=== PATIENT | male | born 1980 | race Two or more races ===

== ENCOUNTER 2018-06-11 15:13 | Inpatient (IN) | payer OTHER ==
[2018-06-11 17:05] VITALS: BMI 20.8
--- NOTE | 2018-06-11 21:07 | HP ---
"CIWA Score - Admission Criteria [facility] Guidelines: Admission for Medically Managed Detox: Requires at least one of the followin. CIWA greater than 12 2. Seizures within the past 24 hours 3. Delirium tremens within the past 24 hours 4. Hallucinations within the past 24 hours 5. Acute intervention needed for co occurring medical disorder 6. Acute intervention needed for co occurring psychiatric disorder 7. Severe withdrawal that cannot be handled at a lower level of care (continued vomiting, continued diarrhea, abnormal vital signs) requiring intravenous medication and/or fluids 8. Admission ROS S - HPI Chief Complaint: Patient w/ hx marijuana use. Mandated into rehab post incarceration. Allergies/Adverse Reactions: Allergies Allergy/AdvReac Type Severity Reaction Status Date / Time No Known Allergies Allergy Verified 06/11/18 18:06 History of Present Illness: Hx marijuana use from age 36. Incarcerated 05/10/18 and released from [facility] today and mandated into rehab. Nicotine use since age 20. Was a 1 ppd smoker. Stopped 1 month ago Last THC use was 1 month ago. Denies hx seizures, blackouts, overdoses. Denies significant PMH/PSH Search Terms: Edgar Vance, 1980 Search Date: 06/11/2018 09:05:15 PM The Drug Utilization Report below displays all of the controlled substance prescriptions, if any, that your patient has filled in the last twelve months. The information displayed on this report is compiled from pharmacy submissions to the Department, and accurately reflects the information as submitted by the pharmacies. This report was requested by: Blanca No | Reference #: [id number] There are no results for the search terms that you entered. Exam Limitations: No Limitations - Ebola screening Have you traveled outside of the country in the last 21 days: No Have you had contact with anyone from an Ebola affected area: No Have you been sick,other than usual withdrawal symptoms: No Do you have a fever: No - Review of Systems Constitutional: No Symptoms Reported EENT: reports: No Symptoms Reported Respiratory: reports: No Symptoms reported Cardiac: reports: No Symptoms Reported GI: reports: No Symptoms Reported : reports: No Symptoms Reported Musculoskeletal: reports: No Symptoms Reported Integumentary: reports: Other (Chapped lips) Neuro: reports: Headache Endocrine: reports: No Symptoms Reported Hematology: reports: No Symptoms Reported Psychiatric: reports: Judgement Intact, Orientated x3, Depressed (Denies thoughts of harming self or others) Patient History - PPD History PPD to be Administered?: Yes - Smoking Cessation Smoking history: Former smoker Have you smoked in the past 12 months: Yes Aproximately how many cigarettes per day: 20 If you are a former smoker, when did you quit?: 30 days ago Hx Chewing Tobacco Use: No Initiated information on smoking cessation: Yes 'Breaking Loose' booklet given: 06/11/18 - Substance & Tx. History Hx Alcohol Use: No Hx Substance Use: Yes Substance Use Type: Marijuana Hx Substance Use Treatment: No (tried stopping on own) - Substances Abused Marijuana/Hashish Route: Smoking Frequency: No use in 30 days (Was incarcerated) Age of first use: 20 Admission Physical Exam [facility] - Vital Signs Vital Signs: Vital Signs - 24 hr 06/11/18 17:03 Temperature 98.2 F Pulse Rate 90 Respiratory 18 Rate Blood Pressure 126/75 - Physical General Appearance: Yes: No Apparent Distress HEENTM: Yes: EOMI, Hearing grossly Normal, Normal ENT Inspection, Normocephalic , Normal Voice, JORDAN, Pharynx Normal Respiratory: Yes: Chest Non-Tender, Lungs Clear, Normal Breath Sounds, No Respiratory Distress Neck: Yes: No masses,lesions,Nodules, Supple Breast: Yes: Breast Exam Deferred Cardiology: Yes: Regular Rhythm, Regular Rate, S1, S2 Abdominal: Yes: Normal Bowel Sounds, Non Tender, Flat, Soft Genitourinary: Yes: Within Normal Limits Back: Yes: Normal Inspection Musculoskeletal: Yes: full range of Motion, Gait Steady Extremities: Yes: Normal Capillary Refill, Normal Range of Motion, Non-Tender, Tremors Neurological: Yes: jinriksha driver II-XII NML intact, Fully Oriented, Alert, Motor Strength 5/5, Normal Mood/Affect, Normal Response Integumentary: Yes: Normal Color, Dry, Warm Lymphatic: Yes: Within Normal Limits - Diagnostic (1) Cannabis use in remisison Current Visit: Yes Status: Acute (2) Nicotine dependence in remission Current Visit: Yes Status: Acute Qualifiers: Nicotine product type: cigarettes Qualified Code(s): F17.211 - Nicotine dependence, cigarettes, in remission Cleared for Admission [facility] - Detox or Rehab Claeared for Rehab Admission: Yes [facility] Breath Alcohol Content Breath Alcohol Content: 0 Urine Drug Screen - Results Drug Screen Negative: Yes Inpatient Rehab Admission - Initial Determination Are CD services needed?: Yes Free of communicable disease: Yes Not in need of hospitalization: Yes - Rehab Admission Criteria Previous failed treatment: Yes Poor recovery environment: Yes Comorbidities: No Lacks judgement: No Patient is meeting Inpatient Rehab admission criteria:: Yes"
[2018-06-11] MEDS ORDERED: MAGNESIUM HYDROX 2400MG/30ML ORAL SUSPENSION 30 ML CUP PO PRN (21:26)
[2018-06-11] MEDS ORDERED: LOPERAMIDE HCL 2 MG CAPSULE PO PRN (21:26)
[2018-06-11] MEDS ORDERED: MENTHOL/PHENOL 1 EACH UD MM PRN (21:26)
[2018-06-11] MEDS ORDERED: MAG HYDROX/AL HYDROX/SIMETH 30 ML UNIT-DOSE CUP PO PRN (21:26)
[2018-06-11] MEDS ORDERED: MAGNESIUM CITRATE 300 ML BOTTLE PO PRN (21:26)
[2018-06-11] MEDS ORDERED: IBUPROFEN 400 MG TABLET (FP) PO PRN (21:26)
[2018-06-11] MEDS ORDERED: ACETAMINOPHEN 325 MG TABLET (FP) PO PRN (21:26)
[2018-06-11] MEDS: THIAMINE HCL 100 MG TABLET (FP) PO SCH (22:27)
[2018-06-11] MEDS ORDERED: TUBERCULIN PPD 5 TU/0.1ML VIAL ID ONE (22:31)
[2018-06-12 01:25] LABS: URINE APPEARANCE CLEAR; URINE BILIRUBIN NEGATIVE (<2.0 mg/dL); URINE COLOR LTYELLOW; URINE GLUCOSE (UA) NEGATIVE (NEGATIVE); URINE KETONE NEGATIVE (NEGATIVE); URINE LEUK ESTERASE NEGATIVE (NEGATIVE); URINE NITRITE NEGATIVE (NEGATIVE); URINE PROTEIN NEGATIVE (NEGATIVE); URINE UROBILINOGEN NEGATIVE mg/dL (0.2-1.0)
[2018-06-12] MEDS ORDERED: NICOTINE 7 MG/24 HOURS TOPICAL PATCH TD SCH (10:00)
[2018-06-12] MEDS: PRENATAL VITAMINS W/ FOLIC ACID TABLET (FP) PO SCH (10:49)
[2018-06-12 11:05] LABS: ALBUMIN 3.8 g/dl (3.4-5.0); ALK PHOS 89 U/L (45-117); ANION GAP 7 MMOL/L (8-16); BILIRUBIN,TOTAL 0.3 mg/dL (0.2-1); BLOOD UREA NITROGEN 15 mg/dL (7-18); CALCIUM 8.6 mg/dL (8.5-10.1); CHLORIDE 106 mmol/L (98-107); CO2 27 mmol/L (21-32); CREATININE 0.8 mg/dL (0.55-1.3); GLUCOSE,RANDOM 98 mg/dL (74-106); POTASSIUM 3.8 mmol/L (3.5-5.1); SGOT/AST 14 U/L (15-37); SGPT/ALT 33 U/L (13-61); SODIUM 140 mmol/L (136-145); TOT PROT 6.5 g/dl (6.4-8.2)
[2018-06-12 11:08] LABS: HEMATOCRIT 45.1 % (35.4-49); HEMOGLOBIN 14.9 GM/dL (11.7-16.9); MCH 29.6 pg (25.7-33.7); MEAN CELL VOLUME 89.6 fl (80-96); MEAN PLT VOLUME 8.9 fl (7.5-11.1); PLATELET COUNT 232 K/MM3 (134-434); RBC 5.03 M/mm3 (4.00-5.60); RDW 14.2 % (11.9-15.9); WHITE BLOOD COUNT 7.4 K/mm3 (4.0-10.0)
[2018-06-12] MEDS: NICOTINE POLACRILEX 2 MG GUM BC PRN ×4 (11:12→23:32)
--- NOTE | 2018-06-12 11:57 | HP ---
Psychiatrist Admission - Data Date of interview: 06/12/18 Admission source: Court mandated Identifying data: This is the first [facility] admission for this 38 years old single male, unemployed, living with family Medical History: Unremakable. Smokes cigarettes 1 ppd Psychiatric History: Denies history of previous psychiatric treatment Physical/Sexual Abuse/Trauma History: Denies emotional, physical or sexual abuse as well as DV relationship Additional Comment: Reports history of 2-3 previous misdemeanor arrests. Patient has an active case and he is court mandated to be here for treatment Vital Signs: Vital Signs - 24 hr 06/11/18 06/11/18 06/12/18 17:03 22:00 03:30 Temperature 98.2 F 98.5 F Pulse Rate 90 74 Respiratory 18 18 18 Rate Blood Pressure 126/75 109/69 06/12/18 06:55 Temperature 97.9 F Pulse Rate 87 Respiratory 18 Rate Blood Pressure 106/70 Allergies/Adverse Reactions: Allergies Allergy/AdvReac Type Severity Reaction Status Date / Time No Known Allergies Allergy Verified 06/11/18 18:06 Date of last physical exam: 06/11/18 Concur with the findings of this exam: Yes - Substance Abuse/Tx History Hx Alcohol Use: No Hx Substance Use: Yes Substance Use Type: Marijuana (Started smoking marijuana in hislate 20's, consumes 1-2 blunts 1-2 monthly. Last used 6 weeks ago) Hx Substance Use Treatment: No Mental Status Exam - Mental Status Exam Alert and Oriented to: Time, Place, Person Cognitive Function: Fair Patient Appearance: Well Groomed Mood: Depressed Affect: Appropriate Patient Behavior: Cooperative Speech Pattern: Clear Voice Loudness: Normal Thought Process: Intact, Goal Oriented Hallucinations: Denies Suicidal Ideation: Denies Homicidal Ideation: Denies Insight/Judgement: Poor Sleep: Fair Appetite: Good Muscle strength/Tone: Normal Gait/Station: Normal Psychiatric Findings - Problem List ([place] 1, 2,3) (1) Cannabis abuse Current Visit: Yes Status: Acute (2) Nicotine dependence Current Visit: Yes Status: Chronic - Initial Treatment Plan Initial Treatment Plan: Monitor progress
[2018-06-12] MEDS: NICOTINE 21 MG/24 HOURS TOPICAL PATCH TD SCH (20:07)
[2018-06-12] MEDS: THIAMINE HCL 100 MG TABLET (FP) PO SCH (21:25)
[2018-06-13] MEDS: PRENATAL VITAMINS W/ FOLIC ACID TABLET (FP) PO SCH (10:01)
[2018-06-13] MEDS: NICOTINE 21 MG/24 HOURS TOPICAL PATCH TD SCH (10:01)
[2018-06-13] MEDS: NICOTINE POLACRILEX 2 MG GUM BC PRN ×2 (10:02→20:35)
[2018-06-13] MEDS ORDERED: PT OWN MED DRAWER 7, Y5N ONE (20:10)
[2018-06-13] MEDS: THIAMINE HCL 100 MG TABLET (FP) PO SCH (21:29)
[2018-06-14] MEDS: NICOTINE POLACRILEX 2 MG GUM BC PRN ×3 (08:46→21:44)
[2018-06-14] MEDS: NICOTINE 21 MG/24 HOURS TOPICAL PATCH TD SCH (10:12)
[2018-06-14] MEDS: PRENATAL VITAMINS W/ FOLIC ACID TABLET (FP) PO SCH (10:12)
[2018-06-14] MEDS: THIAMINE HCL 100 MG TABLET (FP) PO SCH (21:45)
[2018-06-15] MEDS: PRENATAL VITAMINS W/ FOLIC ACID TABLET (FP) PO SCH (10:33)
[2018-06-15] MEDS: NICOTINE 21 MG/24 HOURS TOPICAL PATCH TD SCH (10:33)
[2018-06-15] MEDS: NICOTINE POLACRILEX 2 MG GUM BC PRN ×2 (10:34→19:43)
[2018-06-15] MEDS: THIAMINE HCL 100 MG TABLET (FP) PO SCH (21:34)
[2018-06-16] MEDS: PRENATAL VITAMINS W/ FOLIC ACID TABLET (FP) PO SCH (10:06)
[2018-06-16] MEDS: NICOTINE 21 MG/24 HOURS TOPICAL PATCH TD SCH (10:07)
[2018-06-16] MEDS: NICOTINE POLACRILEX 2 MG GUM BC PRN ×3 (10:07→20:28)
[2018-06-16] MEDS: THIAMINE HCL 100 MG TABLET (FP) PO SCH (21:38)
[2018-06-17] MEDS: PRENATAL VITAMINS W/ FOLIC ACID TABLET (FP) PO SCH (11:52)
[2018-06-17] MEDS: NICOTINE 21 MG/24 HOURS TOPICAL PATCH TD SCH (11:52)
[2018-06-17] MEDS: NICOTINE POLACRILEX 2 MG GUM BC PRN ×2 (13:53→16:40)
[2018-06-17] MEDS: THIAMINE HCL 100 MG TABLET (FP) PO SCH (21:53)
[2018-06-18] MEDS: NICOTINE 21 MG/24 HOURS TOPICAL PATCH TD SCH (10:44)
[2018-06-18] MEDS: PRENATAL VITAMINS W/ FOLIC ACID TABLET (FP) PO SCH (10:45)
[2018-06-18] MEDS ORDERED: PT OWN MED DRAWER 7, Y5N ONE (10:46)
[2018-06-18] MEDS: NICOTINE POLACRILEX 2 MG GUM BC PRN ×3 (14:24→21:56)
[2018-06-18] MEDS: THIAMINE HCL 100 MG TABLET (FP) PO SCH (21:56)
[2018-06-19] MEDS: NICOTINE 21 MG/24 HOURS TOPICAL PATCH TD SCH (10:30)
[2018-06-19] MEDS: PRENATAL VITAMINS W/ FOLIC ACID TABLET (FP) PO SCH (10:30)
[2018-06-19] MEDS: NICOTINE POLACRILEX 2 MG GUM BC PRN ×4 (10:31→21:51)
[2018-06-19] MEDS: MELATONIN 5 MG TABLETS PO PRN (21:49)
[2018-06-19] MEDS: THIAMINE HCL 100 MG TABLET (FP) PO SCH (21:49)
[2018-06-20] MEDS: NICOTINE 21 MG/24 HOURS TOPICAL PATCH TD SCH (10:13)
[2018-06-20] MEDS: PRENATAL VITAMINS W/ FOLIC ACID TABLET (FP) PO SCH (10:13)
[2018-06-20] MEDS: NICOTINE POLACRILEX 2 MG GUM BC PRN ×4 (10:14→21:53)
[2018-06-20] MEDS: THIAMINE HCL 100 MG TABLET (FP) PO SCH (21:53)
[2018-06-20] MEDS: MELATONIN 5 MG TABLETS PO PRN (21:53)
[2018-06-21] MEDS: NICOTINE 21 MG/24 HOURS TOPICAL PATCH TD SCH (10:32)
[2018-06-21] MEDS: PRENATAL VITAMINS W/ FOLIC ACID TABLET (FP) PO SCH (10:32)
[2018-06-21] MEDS: NICOTINE POLACRILEX 2 MG GUM BC PRN ×3 (10:33→18:03)
[2018-06-21] MEDS ORDERED: COLLOIDAL OATMEAL 1 BAR EACH TP PRN (13:15)
[2018-06-21] MEDS ORDERED: AMMONIUM LACTATE 12% LOTION 225 GM BOTTLE TP PRN (13:16)
[2018-06-21] MEDS: THIAMINE HCL 100 MG TABLET (FP) PO SCH (21:13)
[2018-06-21] MEDS: MELATONIN 5 MG TABLETS PO PRN (21:13)
[2018-06-21] MEDS ORDERED: PT OWN MED DRAWER 7, Y5N ONE (22:20)
[2018-06-22] MEDS: NICOTINE 21 MG/24 HOURS TOPICAL PATCH TD SCH (09:55)
[2018-06-22] MEDS: PRENATAL VITAMINS W/ FOLIC ACID TABLET (FP) PO SCH (09:57)
[2018-06-22] MEDS: NICOTINE POLACRILEX 2 MG GUM BC PRN ×4 (09:57→20:59)
[2018-06-22] MEDS: THIAMINE HCL 100 MG TABLET (FP) PO SCH (20:59)
[2018-06-22] MEDS: MELATONIN 5 MG TABLETS PO PRN (23:29)
[2018-06-23] MEDS: NICOTINE 21 MG/24 HOURS TOPICAL PATCH TD SCH (10:10)
[2018-06-23] MEDS: PRENATAL VITAMINS W/ FOLIC ACID TABLET (FP) PO SCH ×2 (10:10→10:12)
[2018-06-23] MEDS: NICOTINE POLACRILEX 2 MG GUM BC PRN ×4 (12:21→21:16)
[2018-06-23] MEDS: THIAMINE HCL 100 MG TABLET (FP) PO SCH (21:16)
[2018-06-23] MEDS: MELATONIN 5 MG TABLETS PO PRN (23:35)
[2018-06-24] MEDS: NICOTINE POLACRILEX 2 MG GUM BC PRN ×4 (06:08→17:00)
--- NOTE | 2018-06-24 09:55 | PN ---
Psychiatric Progress Note Vital Signs: Vital Signs Period Temp Pulse Resp BP Sys/Farrar Pulse Ox Last 24 Hr 97.5 F 70 18-18 111/66 Date of Session: 06/24/18 Chief Complaint:: Discharge Note HPI: Patient addressing Cannabis Abuse comorbid with Nicotine Dependence Current Medications: Active Medications Generic Name Dose Route Start Last Admin Trade Name Freq PRN Reason Stop Dose Admin Acetaminophen 650 mg 06/11/18 21:26 06/11/18 22:26 Tylenol - PO 650 mg Q4H PRN Administration FEVER Al Hydroxide/Mg Hydroxide 30 ml 06/11/18 21:26 Mylanta Oral Suspension - PO Q6H PRN DYSPEPSIA Colloidal Oatmeal 1 applic 06/21/18 13:15 Aveeno Soap - TP DAILY PRN HYGEINE Eucalyptus/Menthol/Phenol/Sorbitol 1 each 06/11/18 21:26 Cepastat Lozenge - MM Q4H PRN SORE THROAT Ibuprofen 400 mg 06/11/18 21:26 06/21/18 21:13 Motrin - PO 400 mg Q6H PRN Administration Pain level 4-6 Lactic Acid 1 applic 06/21/18 13:16 Lac-Hydrin 12 TP BID PRN DRY SKIN Loperamide HCl 4 mg 06/11/18 21:26 Imodium - PO Q6H PRN DIARRHEA Magnesium Citrate 300 ml 06/11/18 21:26 Citroma - PO Q48H PRN CONSTIPATION Magnesium Hydroxide 30 ml 06/11/18 21:26 Milk Of Magnesia - PO DAILY PRN CONSTIPATION Melatonin 5 mg 06/11/18 22:00 06/23/18 23:35 Melatonin PO 5 mg HS PRN Administration INSOMNIA Nicotine 21 mg 06/12/18 17:00 06/23/18 10:10 Nicoderm Patch - TD 21 mg DAILY EVANGELINA Administration Nicotine Polacrilex 4 mg 06/12/18 15:16 06/24/18 06:08 Nicorette Gum - BC 4 mg Q2H PRN Administration NICOTINE REPLACEMENT RX Multivit/Folic Acid/Iron 1 tab 06/12/18 10:00 06/23/18 10:12 Vitamins (Sjr) - PO Not Given DAILY EVANGELINA Thiamine HCl 100 mg 06/11/18 22:00 06/23/18 21:16 Vitamin B1 - PO 100 mg HS EVANGELINA Administration Current Side Effect: No Lab tests ordered: Yes Lab tests reviewed: Yes Provider note:: Patient will complete this program on 06/25/17. He has met his treatment goals and will address hi issues in outpatient treatment at [facility] . 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 He is stable for discharge on 06/25/18 Total face to face time:: 5 Mental Status Exam - Mental Status Exam Alert and Oriented to: Time, Place, Person Cognitive Function: Fair Patient Appearance: Well Groomed Mood: Hopeful, Euthymic Affect: Appropriate Patient Behavior: Cooperative Speech Pattern: Clear Voice Loudness: Normal Thought Process: Intact, Goal Oriented Thought Disorder: Not Present Hallucinations: Denies Suicidal Ideation: Denies Homicidal Ideation: Denies Insight/Judgement: Fair Sleep: Fair Appetite: Good Muscle strength/Tone: Normal Gait/Station: Normal Psychiatric Treatment Plan - Problem List (1) Cannabis abuse Current Visit: Yes (2) Nicotine dependence Current Visit: Yes Initial treatment plan: Patient will be discharged tomorrow and will be referred to [facility] for outpatient treatment
[2018-06-24] MEDS: PRENATAL VITAMINS W/ FOLIC ACID TABLET (FP) PO SCH (10:55)
[2018-06-24] MEDS: NICOTINE 21 MG/24 HOURS TOPICAL PATCH TD SCH (10:56)
[2018-06-24] MEDS: THIAMINE HCL 100 MG TABLET (FP) PO SCH (21:20)
[2018-06-24] MEDS: MELATONIN 5 MG TABLETS PO PRN (21:20)
[2018-06-25 06:56] VITALS: BP 116/69; PULSE 96; TEMP 97.6
== END 2018-06-25 09:38 | disposition home or self-care (01) | DRG 776 ==
LOC: YASAS 15:13 → Y3W 17:13
PROVIDERS: ADMIT Psychiatry & Neurology Psychiatry; ATTEND Psychiatry & Neurology Psychiatry
PROC: HZ42ZZZ Group Counseling for Substance Abuse Treatment, Cognitive-Behavioral (ICD-10-PCS; principal; 2018-06-11)
DX: F12.10 Cannabis abuse, uncomplicated (principal); F17.211 Nicotine dependence, cigarettes, in remission
CPT/HCPCS: 36415; 80053; 81003; 85027; 86593